=== PATIENT | female | born 1965 | race Caucasian/White ===

== ENCOUNTER 2016-05-17 13:06 | Day surgery (SDC) | payer OTHER ==
[~2016-05-17] VITALS: Ht 154.9 cm; Wt 78.5 kg
[2016-05-17 13:44] VITALS: Ht 154.9 cm; Wt 78.5 kg
[2016-05-17] MEDS ORDERED: METFORMIN (13:52)
[2016-05-17] MEDS ORDERED: INSULIN (13:52)
[2016-05-17 14:16] VITALS: BP 129/69; PULSE 95; RESP 18
[2016-05-17] MEDS ORDERED: MIDAZOLAM 1 MG/ML 2 ML INJ ONE ×3 (15:25)
[2016-05-17] MEDS ORDERED: FENTAnyl 50 MCG/ML VIAL ONE (15:25)
[2016-05-17 15:46] VITALS: BP 101/67; RESP 20
--- NOTE | 2016-05-17 17:19 | GILP ---
DATE OF PROCEDURE: 05/17/2016 NAME OF PROCEDURES: 1. Esophagogastroduodenoscopy and biopsy. 2. Colonoscopy. SURGEON: Stuart Gomez MD PREOPERATIVE DIAGNOSES: 1. Chronic heartburn. 2. Positive occult blood in stool. POSTOPERATIVE DIAGNOSES: 1. Hiatal hernia. 2. Reflux esophagitis with erosions. 3. Gastritis with erosions. 4. Gastric mucosal biopsies are positive for Helicobacter pylori infection. 5. Colonoscopy all the way to the cecum. 6. Internal hemorrhoids. 7. No colon neoplasm was identified. INDICATION FOR THE PROCEDURE: Ms. 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 The patient was also noted to have positive occult blood in stool. The patient was scheduled for endoscopy and colonoscopy for further evaluation. The procedures and possible complications are well explained to the patient, she understood and cons ented to the procedure. DESCRIPTION OF PROCEDURE: Under the influence of fentanyl and Versed, the gastroscope was carefully introduced into the esophagus and under direct vision, it was advanced to the stomach and through t he pylorus into the duodenal bulb and descending duodenum. FINDINGS: ESOPHAGUS: The patient had hiatal hernia with reflux esophagitis and erosions. STOMACH: The patient had gastritis with erosions. Biopsy was positive for H. pylori infection. DUODENUM: Normal. The colonoscope was carefully introduced in the rectum and under direct vision, it was advanced all the way to the cecum. FINDINGS: The patient had internal hemorrhoids. No colitis or neoplasm was identified. She tolerated the procedures very well and there was no complication from the procedures. At the en d of the procedures, she was awake with stable vital signs and she was discharged home to the care o f her family. IMPRESSION: Please see postoperative diagnoses. PLAN: 1. Omeprazole 40 mg p.o. q.a.m. 2. Zantac 300 mg p.o. b.i.d. for 14 days. 3. Doxycycline 100 mg p.o. b.i.d. for 14 days. 4. Flagyl 500 mg p.o. b.i.d. for 14 days. 5. Pepto-Bismol 2 tablets p.o. q.i.d. for 14 days. 6. Next screening colonoscopy in 10 years. Dictated By: STUART GARCIA/AUDREY Conf#: [id number] DID#: [id number] CC: STUART GOMEZ MD;*[facility]*
== END 2016-05-17 15:55 | disposition home or self-care (01) ==
LOC: GIL 13:06
PROVIDERS: ATTEND Internal Medicine Gastroenterology
DX: K92.1 Melena (principal); K44.9 Diaphragmatic hernia without obstruction or gangrene; K21.0 Gastro-esophageal reflux disease with esophagitis; K29.60 Other gastritis without bleeding; K64.8 Other hemorrhoids; E11.9 Type 2 diabetes mellitus without complications
CPT/HCPCS: 43239; 45378; 82962; 87081; J2250; J3010; Z7610